=== PATIENT | male | born 1985 | race Caucasian/White ===

== ENCOUNTER 2020-05-11 18:50 | Emergency (ER) | payer BC, SELFPAY ==
[2020-05-11 18:59] VITALS: BP 148/98; PULSE 106; RESP 18; TEMP 36.4; O2SAT 99
[2020-05-11] MEDS: Tranexamic Acid 1,000 MG/10 ML VIAL 500 MG NS (19:21)
[2020-05-11] MEDS: Cellulose,Oxidized 2X3 PKT 1 EACH MC (19:21)
--- NOTE | 2020-05-11 19:35 | W.ED.GENAD ---
Discharge Plan Disposition Patient Disposition: HOME Condition: Stable Discharge Details Chief Complaint: Laceration Clinical Impression: Avulsion, finger tip Primary Care Provider: Lena,Local ED Provider: Hyacinth Villaseñor Home Meds and New Rx's Prescriptions: No Action lisinopril 10 mg Tablet 10 mg PO DAILY RF: 0 Flovent HFA 44 mcg/actuation Hfa Aerosol Inhaler 2 puff INHALATION DAILY RF: 0 albuterol sulfate [ProAir HFA] 90 mcg/actuation Hfa Aerosol Inhaler 2 puff INHALATION PRN PRNRF: 0 Discharge Instructions Instructions: Acute Wound Care (ED), Finger Laceration (ED) Additional Instructions: Keep dressing on as instructed by Dr. Reddy. Keep clean and dry. Return for any signs of infection including increased redness, swelling, recurrence of bleeding. Follow up with primary care provider in 3-5 days. Return to ED sooner if any worsening or concerns. Increase oral fluids. Please take Tylenol or Ibuprofen with food every 4-6 hours as needed for pain and swelling. Lidocaine will wear off in approximately 2 hours. Discharge Data Discharge Date/Time-TO BE ENTERED AT DEPARTURE: 05/11/20 21:30 Medical Decision Making <Hyacinth Villaseñor - Last Filed: 05/11/20 23:57> 34-year-old male presents to the ER with a right ring finger distal tip laceration caused by a mandolin slicer. This occurred approximately an hour and half prior to arrival. He has been unable to get the bleeding to stop. He does have a distal tip amputation which is actively oozing. Patient denies any lightheadedness or dizziness. He did bring the tip of his finger. Tetanus shot is up-to-date. 1936: TXA and Surgicel gauze applied with pressure bandage on 2 digit. Will re-eval in 15 to 20 minutes. 2022: Bleeding continues, soaked through surgicel and TXA soaked guaze and compression dressing. 2049: Dr. Maureen RILEY assisted with bleeding cessation procedure, please see procedure note above. Patient tolerated well, discharged with strict return instructions. HPI <Hyacinth Villaseñor - Last Filed: 05/11/20 23:57> General Mode of arrival: ambulatory. Date/Time Provider Initiated Documentation: 05/11/20 18:51. Limitations to Documentation: no limitations. Information obtained by: patient. HPI Narrative: 34-year-old male presents to the ER with a right ring finger distal tip laceration caused by a mandolin slicer. This occurred approximately an hour and half prior to arrival. He has been unable to get the bleeding to stop. He does have a distal tip amputation which is actively oozing. Patient denies any lightheadedness or dizziness. He did bring the tip of his finger. Tetanus shot is up-to-date. Related Data Home Medications Medication Instructions Recorded Confirmed albuterol sulfate [ProAir HFA] 2 puff INHALATION PRN PRN 05/11/20 05/11/20 fluticasone propionate [Flovent 2 puff INHALATION DAILY 05/11/20 05/11/20 HFA] lisinopril 10 mg PO DAILY 05/11/20 05/11/20 Allergies Allergy/AdvReac Type Severity Reaction Status Date / Time No Known Allergies Allergy Unverified 05/11/20 19:08 General Stated Complaint: Laceration MICHELLE: 4 Review of Systems <Hyacinth Villaseñor - Last Filed: 05/11/20 23:57> Narrative: Constitutional: Negative for weight loss, alert and oriented, well groomed, normal body habitus, appears comfortable. HEENT: Denies trauma, headaches, blurry vision, nasal discharge, sore throat, trouble swallowing. Chest: Denies chest pain, palpitations, irregular rhythm, hypertension. Respiratory: Denies Shortness of breath, cough, hemoptysis. GI: Denies abdominal pain, nausea, vomiting, diarrhea, constipation. : Denies dysuria, hematuria, flank pain, rectal bleeding. Neuro: Denies dizziness, blurry vision, weakness, syncope, headache or facial numbness. Hematologic: Denies easy bruising, intolerance to heat or cold, hair loss. PFSH <Hyacinth Villaseñor - Last Filed: 05/11/20 23:57> Medical History Asthma (Chronic) Hypertension (Chronic) Social History Smoking/Tobacco Use Status: Never Alcohol Intake: current Alcohol Intake frequency: 0-2 drinks per day Alcohol type: beer, wine and hard liquor Substance use type: does not use Do you feel safe at home: Yes Do you feel safe in your relationship?: Yes Exam <Hyacinth Villaseñor Last Filed: 05/11/20 23:57> Narrative Exam Narrative: Constitutional: Alert and oriented x3. Appears stated age. Normal body habitus. Head: Normocephalic, no trauma. Eyes: Pupils PERRLA, Red reflex noted, EOM's intact. Eyelids symmetrical without lesions, discharge, or swelling. ENT: Bilateral TM's WNL, External ear normal to inspection, no mastoid TTP, swelling, or erythema, Nasal turbinates WNL, no nasal discharge. Normal dentition, Posterior pharynx WNL, no exudate. Chest: RRR, Normal S1, S2, distal pulses intact. Resp: Lungs clear to auscultation bilaterally, no wheezes, rales, or rhonchi. Musculoskeletal: Normal gait, 5/5 strength to all four extremities. Skin: Distal tip right ring finger avulsion which is Actively bleeding. No suturable laceration noted. Nail and nailbed is intact. Full range of motion noted. Neurologic: Cranial nerves II-XII intact. Alert and oriented x 3. DTR's intact. Hematologic/Lymphatic: No ecchymosis, no lymphadenopathy. Course <Hyacinth Villaseñor Last Filed: 05/11/20 23:57> Vital Signs Vital signs: Vital Signs Temperature 36.4 C L 05/11/20 18:59 Pulse 106 H 05/11/20 18:59 Respiratory Rate 18 05/11/20 18:59 Blood Pressure 148/98 H 05/11/20 18:59 Pulse Oximetry 99 05/11/20 18:59 Temperature 36.4 C L 05/11/20 18:59 Temperature Source Skin 05/11/20 18:59 Pulse 106 H 05/11/20 18:59 Respiratory Rate 18 05/11/20 18:59 Respiratory Effort Non-Labored 05/11/20 19:02 Blood Pressure 148/98 H 05/11/20 18:59 Pulse Oximetry 99 05/11/20 18:59 Pain Level 2 05/11/20 18:59 <Kenia Reddy DO - Last Filed: 05/12/20 00:14> Laceration Laceration 1: Site: hand Side (If applicable): left Size (cm): 1 Description: other (1x1cm avulsion noted to tip, bleeding controlled) Depth: simple, single layer Pre-repair: wound explored, irrigated extensively and deep structures intact Skin layer closed with: other (Upon removal of TXA soaked gauze/surgicel, bleeding stopped. Wound soaked in sterile water/betadine and covered with gelfoam and gauze dressing. No further bleeding.)
== END 2020-05-11 21:30 | disposition home or self-care (01) ==
PROVIDERS: Emergency Provider Registered Nurse Emergency
DX: S61.204A Unspecified open wound of right ring finger without damage to nail, initial encounter (principal); W27.4XXA Contact with kitchen utensil, initial encounter; I10 Essential (primary) hypertension
CPT/HCPCS: 99282